=== PATIENT | female | born 1960 | race Caucasian/White ===

== ENCOUNTER → 2019-04-04 07:44 | Outpatient (BNVA) | payer OTHER, SELFPAY | PROVIDERS: Family Provider Nurse Practitioner; PCP Nurse Practitioner; Visit Provider Nurse Practitioner | DX: E03.8 Other specified hypothyroidism (principal); E78.2 Mixed hyperlipidemia | CPT/HCPCS: 36415; 80053; 80061; 84443 ==

== ENCOUNTER → 2019-05-22 07:25 | Outpatient (BNVA) | payer OTHER, SELFPAY | PROVIDERS: Family Provider Nurse Practitioner; PCP Nurse Practitioner; Visit Provider Nurse Practitioner | DX: E03.8 Other specified hypothyroidism (principal) | CPT/HCPCS: 84443 ==

== ENCOUNTER → 2019-09-11 08:58 | Outpatient (BNVA) | payer OTHER, SELFPAY | PROVIDERS: Family Provider Nurse Practitioner; PCP Nurse Practitioner; Visit Provider Nurse Practitioner | DX: E03.8 Other specified hypothyroidism (principal); E78.2 Mixed hyperlipidemia | CPT/HCPCS: 80053; 80061; 84481 ==

== ENCOUNTER → 2019-09-14 16:06 | Outpatient (BNVA) | payer OTHER, SELFPAY | PROVIDERS: Family Provider Nurse Practitioner; PCP Nurse Practitioner; Visit Provider Nurse Practitioner | DX: E03.8 Other specified hypothyroidism (principal); E66.3 Overweight | CPT/HCPCS: 84439; 84443 ==

== ENCOUNTER → 2020-03-05 09:05 | Outpatient (BNVA) | payer OTHER, SELFPAY | PROVIDERS: Family Provider Nurse Practitioner; PCP Nurse Practitioner; Visit Provider Nurse Practitioner | DX: E03.8 Other specified hypothyroidism (principal) | CPT/HCPCS: 84439; 84443; 84481 ==

== ENCOUNTER → 2020-09-02 08:45 | Outpatient (BNVA) | payer OTHER, SELFPAY | PROVIDERS: Family Provider Nurse Practitioner; PCP Nurse Practitioner; Visit Provider Nurse Practitioner | DX: E78.2 Mixed hyperlipidemia (principal); E03.8 Other specified hypothyroidism; E55.9 Vitamin D deficiency, unspecified; Z12.11 Encounter for screening for malignant neoplasm of colon; N95.2 Postmenopausal atrophic vaginitis | CPT/HCPCS: 80053; 80061; 82306; 82607; 84439; 84443; 84481; 85025 ==

== ENCOUNTER 2020-09-17 09:09 | Outpatient (CLI) | payer OTHER, SELFPAY ==
--- NOTE | 2020-09-17 09:16 | MM_ITS ---
WS: [id number] BILATERAL SCREENING MAMMOGRAM WITH LOKI DISPLACEMENT VIEWS. CAD PERFORMED. HISTORY: SCREENING COMPARISON: 02/10/2018 Bilateral craniocaudal and mediolateral like views are performed. Loki displacement views in CC and MLO projection also performed. Breasts composition: There are scattered areas of fibroglandular density. No suspicious masses or calcifications. Prepectoral implants and partially calcified implants. No areli nge or collapse. MM/[place] [id number] IMPRESSION: BI-RADS: 2-Benign FOLLOW-UP: 1 Year Follow-up
== END 2020-09-17 09:10 | disposition home or self-care (01) ==
PROVIDERS: Family Provider Nurse Practitioner; PCP Nurse Practitioner; Visit Provider Nurse Practitioner
DX: Z12.31 Encounter for screening mammogram for malignant neoplasm of breast (principal)
CPT/HCPCS: 77067

== ENCOUNTER → 2020-12-16 13:33 | Outpatient (BNVA) | payer OTHER, SELFPAY | PROVIDERS: Family Provider Nurse Practitioner; PCP Nurse Practitioner; Visit Provider Surgery | DX: Z12.11 Encounter for screening for malignant neoplasm of colon (principal); Z20.822 Contact with and (suspected) exposure to COVID-19 | CPT/HCPCS: 87635 ==

== ENCOUNTER 2020-12-19 08:38 | Day surgery (SDC) | payer OTHER, SELFPAY ==
[2020-12-19 09:22] VITALS: BP 110/82; PULSE 89; RESP 16; O2SAT 100
--- NOTE | 2020-12-19 09:27 | ANES.PREANE2 ---
Pre-Anesthetic Assessment Pre-Anesthetic Assessment: Height/Weight: Height 1.68 m Weight 68.039 kg Preop Diagnosis: screening colonoscopy Proposed Procedure: Operation Date: 12/19/20 09:30 Proposed Procedures p Colonoscopy 35695 z12.11(Not Applicable) - Miki Mark MD Familial anesthetic complications: none Was Beta Maria D taken within 24 hours: N/A Was Clonidine taken within 24 hours: N/A Last Intake: 20:00 Social: Social History: No alcohol and No tobacco Exam: Pre-Anes Outpt Exam: alert, oriented x 3, clear to auscultation bilaterally and regular rate & rhythm Airway: Submandibular: WNL Cervical ROM: WNL MP: 2 Dentition: Full Pulmonary: Pulmonary: None reported CV/HEM: CV/HEM: None reported : : None reported Hepatic: Hepatic: None reported GI: GI: None reported Metabolic: Metabolic: Thyroid Musc/skel: Musc/skel: None reported Neuropsych: Neuropsych: None reported Anesthetic Plan: ASA status: 2 Anesthesia: MAC Risk of > 500 ml blood loss (7ml/kg in children): No PFSH Anesthesia PFSH: Medical History (Updated 09/02/20 @ 08:51 by JESSICA Saenz) Adult onset hypothyroidism Atrophic vaginitis Hyperlipidemia, unspecified Surgical History History of augmentation mammoplasty 2010 History of section Family History Other Cancer Heart disease Social History Smoking and tobacco status: never smoked Second hand smoke exposure: No Smoking risk assessment/counseling performed?: No Alcohol intake: never Desire information about alcohol rehabilitation?: No Counseling given: No Desire information about substance/drug rehabilitation?: No Counseling given: No Adopted: No Caregiver/support person: No Lives independently: Yes Household members: other Housing: House Marital status: Single Number of children: 2 service: No Current occupational status: employed Pets and animals: No History of recent travel: No Current gender identity: Female Data Anesthesia Cardiac Studies: No Data to Display
[2020-12-19] MEDS: sodium chloride 0.9% 1,000 ML 30 ML IV (09:29)
--- NOTE | 2020-12-19 10:02 | W.PM.OPSFHP ---
Same Day Surgery H&P Indication for Procedure/HPI DATE OF PROCEDURE: December 19, 2020 CHIEF COMPLAINT/INDICATIONFOR SURGICAL PROCEDURE: screening colonoscopy PREOP DIAGNOSIS: screening colonoscopy PLANNED PROCEDRUE: Operation Date: 12/19/20 09:30 Proposed Procedures p Colonoscopy 18573 z12.11(Not Applicable) - Miki Mark MD Medications/Allergies* Allergies/Adverse Reactions Allergy/AdvReac Type Severity Reaction Status Date / Time No Known Allergies Allergy Verified 12/19/20 09:21 Current Medications: Generic Name Dose Route Start Last Admin Trade Name Freq PRN Reason Stop Dose Admin Sodium Chloride 1,000 mls @ 30 mls/hr 12/19/20 09:00 12/19/20 09:29 Sodium Chloride 0.9% IV 12/20/20 08:59 30 mls/hr .Q24H MICHAEL Administration Pertinent History/Comorbid Conditions* Medical History (Updated 09/02/20 @ 08:51 by JESSICA Saenz) Adult onset hypothyroidism Atrophic vaginitis Hyperlipidemia, unspecified Surgical History (Updated 04/12/19 @ 08:55 by JESSICA Saenz) History of augmentation mammoplasty 2010 History of section Family History (Updated 04/11/19 @ 13:17 by ROBERTO Mortensen) Heart disease Cancer Social History Smoking and tobacco status: never smoked Second hand smoke exposure: No Smoking risk assessment/counseling performed?: No Alcohol intake: never Desire information about alcohol rehabilitation?: No Counseling given: No Desire information about substance/drug rehabilitation?: No Counseling given: No Adopted: No Caregiver/support person: No Lives independently: Yes Household members: other Housing: House Marital status: Single Number of children: 2 service: No Current occupational status: employed Pets and animals: No History of recent travel: No Current gender identity: Female Pertinent Exam Findings alert, oriented x 3 and regular rate & rhythm Recommendations Surgery/Procedure today Coding Level of Care Code Acute 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
[2020-12-19 10:28] VITALS: BP 110/73; PULSE 72; RESP 16; TEMP 36.4; O2SAT 97
--- NOTE | 2020-12-19 10:31 | ANE.PACU2 ---
Inpatient post-anesthesia follow up: Airway intact: Yes Vital signs: Temperature 97.5 F Pulse Rate 72 Respiratory Rate 16 Blood Pressure 110/73 Pulse Oximetry 97 Oxygen Delivery Me thod Room Air Oxygen Flow Rate Fraction of Inspir ed Oxygen Hydration adequate: Yes Nausea and vomiting: No Pain level: 1 Mental status: Baseline
[2020-12-19 10:36] VITALS: BP 125/82; PULSE 69; RESP 16; O2SAT 99
== END 2020-12-19 10:55 | disposition home or self-care (01) ==
PROVIDERS: PCP Nurse Practitioner; Visit Provider Surgery
PROC: 0DJD8ZZ Inspection of Lower Intestinal Tract, Via Natural or Artificial Opening Endoscopic (ICD-10-PCS; CPT 45378; principal; 2020-12-19 09:30)
DX: Z12.11 Encounter for screening for malignant neoplasm of colon (principal); E03.9 Hypothyroidism, unspecified; E78.5 Hyperlipidemia, unspecified; Z82.49 Family history of ischemic heart disease and other diseases of the circulatory system; D12.2 Benign neoplasm of ascending colon; K57.30 Diverticulosis of large intestine without perforation or abscess without bleeding
CPT/HCPCS: 45385; 88305; 96360; J2704; J7030

== ENCOUNTER → 2021-02-26 08:29 | Outpatient (BNVA) | payer OTHER, SELFPAY | PROVIDERS: PCP Nurse Practitioner; Visit Provider Nurse Practitioner | DX: E78.2 Mixed hyperlipidemia (principal); E03.8 Other specified hypothyroidism | CPT/HCPCS: 80053; 80061; 82607; 84443 ==

== ENCOUNTER → 2021-08-19 08:36 | Outpatient (BNVA) | payer BC, SELFPAY | PROVIDERS: PCP Nurse Practitioner; Visit Provider Nurse Practitioner | DX: E03.8 Other specified hypothyroidism (principal); Z13.6 Encounter for screening for cardiovascular disorders; E55.9 Vitamin D deficiency, unspecified; Z12.39 Encounter for other screening for malignant neoplasm of breast | CPT/HCPCS: 80053; 80061; 82306; 82607; 84439; 84443; 84481; 85025 ==

== ENCOUNTER 2021-11-06 07:24 | Outpatient (CLI) | payer BC, SELFPAY ==
--- NOTE | 2021-11-06 07:51 | MM_ITS ---
WS: [id number] Bilateral screening 3D tomosynthesis digital mammogram, 11/06/2021 Clinical Data: Z12.39 - Encounter for other screening for malignant neop... Comparison: 09/17/2020, 02/10/2018, 01/11/2016, 08/09/2014. Findings: The breast parenchymal pattern shows fibroglandular tissue. No spiculated masses or clustered calcifi cations are seen. There are no secondary signs of carcinoma. The bilateral implants are intact and un changed. MM/[place] [id number] Impression: 1. Negative bilateral mammogram unchanged. 2. Recommend annual screening mammograms. BIRADS: 1-Negative FOLLOW UP: 1 Year Follow-up The CAD bakery products checker was used.
== END 2021-11-06 07:25 | disposition home or self-care (01) ==
LOC: RAD 07:26
PROVIDERS: PCP Nurse Practitioner; Visit Provider Nurse Practitioner
DX: Z12.31 Encounter for screening mammogram for malignant neoplasm of breast (principal)
CPT/HCPCS: 77063; 77067

== ENCOUNTER → 2022-02-17 16:13 | Outpatient (BNVA) | payer BC, SELFPAY | PROVIDERS: PCP Nurse Practitioner; Visit Provider Nurse Practitioner | DX: E03.8 Other specified hypothyroidism (principal); E07.9 Disorder of thyroid, unspecified | CPT/HCPCS: 80053; 80061; 84443; 85025 ==

== ENCOUNTER 2022-11-20 07:02 | Outpatient (CLI) | payer BC, SELFPAY ==
--- NOTE | 2022-11-20 | MM_ITS ---
WS: [id number] BILATERAL SCREENING DIGITAL BREAST MAMMOGRAPHY WITH LOKI DISPLACEMENT VIEWS. CAD PERFORMED. HISTORY: ANNUAL SCREENING COMPARISON: 11/06/2021, 09/17/2020 Bilateral craniocaudal and mediolateral oblique views are performed with tomosynthesis and SM. Loki displacement views in CC and MLO projection also performed. Breasts composition: There are scattered areas of fibroglandular density. Implants are prepectoral and intact. No implant collapse. No suspicious masses or calcifications. IMPRESSION: MM/[place] [id number] BI-RADS: 2-Benign FOLLOW-UP: 1 Year Follow-up
== END 2022-11-20 07:03 | disposition home or self-care (01) ==
LOC: RAD 07:02
PROVIDERS: PCP Nurse Practitioner Family; Visit Provider Nurse Practitioner Family
DX: Z12.31 Encounter for screening mammogram for malignant neoplasm of breast (principal)
CPT/HCPCS: 77063; 77067

== ENCOUNTER 2023-12-16 08:38 | Outpatient (CLI) | payer BC, SELFPAY ==
--- NOTE | 2023-12-16 08:41 | MM_ITS ---
WS: [id number] BILATERAL SCREENING DIGITAL BREAST MAMMOGRAPHY WITH LOKI DISPLACEMENT VIEWS. CAD PERFORMED. HISTORY: SCREENING COMPARISON: 11/20/2022, 11/06/2021 and 09/17/2020 Bilateral craniocaudal and mediolateral oblique views are performed with tomosynthesis and SM. Loki displacement views in CC and MLO projection also performed. Breasts composition: There are scattered areas of fibroglandular density. No suspicious masses or calcifications or interval change. Implants are prepectoral and partially monet cified. MM/MM scr tomosynthesis [id number] IMPRESSION: BI-RADS: 2 - Benign. FOLLOW-UP: 1 Year Follow-up
== END 2023-12-16 08:39 | disposition home or self-care (01) ==
LOC: RAD 08:39
PROVIDERS: PCP Nurse Practitioner Family; Visit Provider Nurse Practitioner Family
DX: Z12.31 Encounter for screening mammogram for malignant neoplasm of breast (principal); R92.323 Mammographic fibroglandular density, bilateral breasts
CPT/HCPCS: 77063; 77067

== ENCOUNTER 2024-12-21 07:31 | Outpatient (CLI) | payer BC, SELFPAY ==
--- NOTE | 2024-12-21 07:34 | MM_ITS ---
WS: [id number] BILATERAL SCREENING DIGITAL BREAST MAMMOGRAPHY WITH LOKI DISPLACEMENT VIEWS. CAD PERFORMED. HISTORY: ANNUAL SCREEN COMPARISON: 12/16/2023, 11/20/2022 Bilateral craniocaudal and mediolateral oblique views are performed with tomosynthesis and SM. Loki displacement views in CC and MLO projection also performed. Breasts composition: There are scattered areas of fibroglandular density. Partial contracture of the implants is similar to the prior study. No collapse or extravasation from the implants. Benign calcifications anterior LEFT breast. No suspicious masses or calcifications identified. MM/MM scr BI tomosynthesis [id number] IMPRESSION: BI-RADS: 2 - Benign. FOLLOW-UP: 1 Year Follow-up
== END 2024-12-21 07:32 | disposition home or self-care (01) ==
LOC: RAD 07:32
PROVIDERS: PCP Nurse Practitioner Family; Visit Provider Nurse Practitioner Family
DX: Z12.31 Encounter for screening mammogram for malignant neoplasm of breast (principal); R92.323 Mammographic fibroglandular density, bilateral breasts; Z98.82 Breast implant status; R92.1 Mammographic calcification found on diagnostic imaging of breast
CPT/HCPCS: 77063; 77067